=== PATIENT | male | born 1960 | race Caucasian/White ===

== ENCOUNTER 2023-04-25 00:50 | Day surgery (SDC) | payer BC, SELFPAY ==
[2023-04-14 14:08] VITALS: BMI 29.5
[2023-04-25 07:10] VITALS: BP 145/88; PULSE 72; RESP 18; TEMP 36.3; O2SAT 100; BMI 28.1
[2023-04-25] MEDS: LACTATED RINGERS 1,000 ML 150 ML IV CONT (07:28)
--- NOTE | 2023-04-25 08:03 | WPDANESEPPF ---
Anes - Initial Pre Proc Eval Procedure: Operation Date: 04/25/23 08:45 Proposed Procedures p Colonoscopy - Thai Shelley MD Date/Time: 04/25/23 08:03 Surgeon: Thai Shelley MD Pre Op Diagnosis: neoplasm screening Patient Data Age: 62 Gender: M Height: 1.68 m Weight: 79.2 kg Last Vital Signs Temp 36.3 C L 04/25/23 07:10 Pulse 72 04/25/23 07:10 Resp 18 04/25/23 07:10 BP 145/88 H 04/25/23 07:10 Pulse Ox 100 04/25/23 07:10 O2 Del Method Room Air 04/25/23 07:10 Allergies Allergy/AdvReac Type Severity Reaction Status Date / Time No Known Allergies Allergy Mild Verified 04/25/23 07:18 Home Medications Medication Instructions Recorded Confirmed Type lorazepam 0.5 mg tablet 0.5 mg PO DAILY PRN anxiety #30 03/25/22 04/25/23 Rx tabs atorvastatin 40 mg tablet 40 mg PO DAILY #90 tabs 10/17/22 04/25/23 Rx ergocalciferol (vitamin D2) 1,250 1,250 mcg PO WEEKLY #13 caps 11/29/22 04/25/23 Rx mcg (50,000 unit) capsule Patient hx anesthesia problems: none Family hx anesthesia problems: none Results Review: All pre-operative results and documents have been reviewed as part of the pre-operative evaluation. [facility] Past Medical History Medical History Anxiety Hyperlipidemia Hypertension Vitamin D deficiency Family History Family History Mother Patient's mother is Father Patient's father is Social History Social History Smoking status: Never smoker Alcohol intake: current Drinks per week: 18 Alcohol use details: BEERS Substance use: never Substance use type: does not use Lack of Transportation: No Lack of Food: Sometimes True Current Housing: I Have Housing Concerned About Future Housing: No Difficulty Paying Gas/Electric Bills: No Difficulty Paying for Meds: No Currently Unemployed: No Education: High School Diploma/GED Difficulty w/ Childcare or Family Care: No Living arrangements: with family Spiritual care concerns: No Anes - Eval Final PreProcedure Day of Procedure 04/25/23 08:03 Patient weight: overweight Heart: regular rate and rhythm Lungs: clear to auscultation Airway: Mallampati scale class II Neurological: alert and oriented Last oral intake: >/= 8 hours ASA classification: II Emergent: no Anesthetic plan: proceed Anesthesia type and monitoring: general GIVS and standard monitoring Results Review: All pre-operative results and documents have been reviewed as part of the pre-operative evaluation. Informed Consent: The patient's anesthetic plan and its attendant risks and benefits were discussed with the patient/family/POA. Questions were solicited and answers provided to the satisfaction of the patient/family/POA.
--- NOTE | 2023-04-25 08:25 | PM.HPGS ---
History of Present Illness History of Present Illness Consent: Risks, benefits, and alternatives have been discussed and questions answered. Patient agrees to proceed with procedure. Chief complaint: neoplasm screening Narrative: Alfie Lopez is a 62 year old male with last colonoscopy in 2011 Review of Systems Constitutional: Constitutional: Denies headache(s) and Denies weakness Eyes: Eyes: Denies blurry vision ENT: Reports Normal hearing present, Denies headache(s) and Denies neck pain Cardiovascular: Cardiovascular: Denies chest pain and Denies dyspnea Respiratory: Respiratory: Denies dyspnea Gastrointestinal: Gastrointestinal: Reports no additional gastrointestinal complaints Genitourinary: Genitourinary: Denies dysuria Musculoskeletal: Musculoskeletal: Denies neck pain Integumentary/Breasts: Skin/Breast: Denies dry skin Neurologic: Reports Normal hearing present, Denies headache(s) and Denies weakness Psychiatric: Psychiatric: Denies anxiety Endocrine: Endocrine: Denies change in body appearance Hematologic/Lymphatic: Hematologic/Lymphatic: Denies easy bleeding Allergic/Immunologic: Allergic/Immunologic: Denies urticaria PMFSH Past Medical History Medical History (Updated 04/25/23 @ 08:26 by Thai Shelley MD) Anxiety Colon cancer screening Hyperlipidemia Hypertension Vitamin D deficiency Family History Family History Mother Patient's mother is Father Patient's father is Social History Social History Smoking status: Never smoker Alcohol intake: current Drinks per week: 18 Alcohol use details: BEERS Substance use: never Substance use type: does not use Lack of Transportation: No Lack of Food: Sometimes True Current Housing: I Have Housing Concerned About Future Housing: No Difficulty Paying Gas/Electric Bills: No Difficulty Paying for Meds: No Currently Unemployed: No Education: High School Diploma/GED Difficulty w/ Childcare or Family Care: No Living arrangements: with family Spiritual care concerns: No Meds Home Medications and Allergies Home Medications Medication Instructions Recorded Confirmed Type lorazepam 0.5 mg tablet 0.5 mg PO DAILY PRN anxiety #30 03/25/22 04/25/23 Rx tabs atorvastatin 40 mg tablet 40 mg PO DAILY #90 tabs 10/17/22 04/25/23 Rx ergocalciferol (vitamin D2) 1,250 1,250 mcg PO WEEKLY #13 caps 11/29/22 04/25/23 Rx mcg (50,000 unit) capsule Allergies Allergy/AdvReac Type Severity Reaction Status Date / Time No Known Allergies Allergy Mild Verified 04/25/23 07:18 Vital Signs Vital Signs - 24 hr 04/25/23 07:10 Temperature 97.4 F L Pulse Rate 72 Respiratory Rate 18 Blood Pressure 145/88 H Pulse Oximetry 100 Oxygen Delivery Room Air Exam Const: General: comfortable and no acute distress HENMT: Face/Nose/Sinus: Normal nares present Eyes: General: appearance normal, both eyes and all related structures Neck: Neck: no JVD Resp: Auscultation: clear to auscultation bilaterally Cardio: Rate: regular rate Rhythm: regular rhythm GI: Inspection: non-distended GI Palp: Yes Soft to palpation Skin: General skin exam: normal color Neuro: General: gait normal Speech: normal speech Extrem: General: normal to inspection Psych: Mental Status: mental status grossly normal Assessment and Plan Assessment and plan (1) Colon cancer screening: Code(s): Z12.11 - Encounter for screening for malignant neoplasm of colon Status: Acute Assessment and Plan: colonoscopy
[2023-04-25 08:44] VITALS: BP 121/82; PULSE 74; RESP 20; O2SAT 97
[2023-04-25 08:54] VITALS: BP 115/88; PULSE 74; RESP 19; O2SAT 99
[2023-04-25 09:04] VITALS: BP 136/82; PULSE 63; RESP 20; O2SAT 99
== END 2023-04-25 09:19 | disposition home or self-care (01) ==
PROVIDERS: PCP Internal Medicine; Visit Provider Internal Medicine Gastroenterology
PROC: 0DJD8ZZ Inspection of Lower Intestinal Tract, Via Natural or Artificial Opening Endoscopic (ICD-10-PCS; CPT 45378; principal; 2023-04-25 08:45)
DX: Z12.11 Encounter for screening for malignant neoplasm of colon (principal); D12.0 Benign neoplasm of cecum; D12.3 Benign neoplasm of transverse colon; K63.5 Polyp of colon; K57.30 Diverticulosis of large intestine without perforation or abscess without bleeding; K64.8 Other hemorrhoids; E78.5 Hyperlipidemia, unspecified; E55.9 Vitamin D deficiency, unspecified; F41.9 Anxiety disorder, unspecified
CPT/HCPCS: 45385; 88305; J2704; J7120

== ENCOUNTER 2024-11-25 15:43 | Emergency (ER) | payer BC, SELFPAY ==
--- NOTE | ~2024-11-25 | XR_ITS ---
EXAM: XR finger 4th LT min 2V DATE: 11/25/2024 17:17 HISTORY: lac, r/o fx . COMPARISON: None available. FINDINGS: Comminuted fracture of the left fourth digit distal tuft, with considerable displacement o f several fracture fragments. Mild distraction and angulation of the major distal fragment. Ovoid per ipherally dense soft tissue collection with overlying soft tissue disruption and multifocal punctate debris. Mild scattered degenerative changes. No other acute osseous injury detected. IMPRESSION: Comminuted, mildly angulated and distracted left fourth distal tuft fracture, with signif icant displacement of smaller ossific fragments. Rounded peripherally hyperdense soft tissue collecti on may represent subcutaneous hematoma with clotted blood/debris. Reviewed, dictated and finalized at location K. IMPRESSION: Comminuted, mildly angulated and distracted left fourth distal tuft fracture, with significant displacement of smaller ossific fragments. Rounded peripherally hyperdense soft tissue collection may represent subcutaneous hemat aury with clotted blood/debris.
[2024-11-25 15:58] VITALS: BP 190/102; PULSE 110; RESP 18; TEMP 36.6; O2SAT 98
--- NOTE | 2024-11-25 17:10 | ED_ITS ---
HPI - Wound/Laceration General Chief Complaint: Wound/Laceration Stated Complaint: Laceration to left ring finger-electric saw Time Seen by Provider: 11/25/24 16:59 Source: patient Mode of arrival: ambulatory Limitations: no limitations History of Present Illness HPI narrative: Patient is a 64 y/o male who presents to the ED with c/o laceration to his L 4th digit. Patient reports he was using an electric circular saw when he sustained a laceration to his left 4th digit. Reports some tingling in his digit. Denies numbness. Denies any other injuries. Tetanus is unknown. Related Data Allergies Allergy/AdvReac Type Severity Reaction Status Date / Time No Known Allergies Allergy Mild Verified 11/25/24 15:44 Review of Systems Review of Systems: All systems reviewed & are unremarkable except as noted in HPI. All systems reviewed & are unremarkable except as noted in HPI and below PMFSH Past Medical History Medical History Colon cancer screening Anxiety Vitamin D deficiency Hyperlipidemia Hypertension Family History Family History Mother Patient's mother is Father Patient's father is Social History Social History Smoking status: Never smoker Alcohol intake: current Drinks per week: 18 Alcohol use details: BEERS Substance use: never Substance use type: does not use Lack of Transportation: No Lack of Food: Sometimes True Current Housing: I Have Housing Concerned About Future Housing: No Difficulty Paying Gas/Electric Bills: No Difficulty Paying for Meds: No Currently Unemployed: No Education: High School Diploma/GED Difficulty w/ Childcare or Family Care: No Living arrangements: with family Spiritual care concerns: No Exam Narrative: GENERAL: Well appearing, well-nourished, non-toxic, in no acute distress. HEAD: Normocephalic, atraumatic. RESPIRATORY: Airway patent, respirations nonlabored. CARDIOVASCULAR: Regular rate and rhythm. Radial pulses intact. MUSCULOSKELETAL: Moves all extremities. No gross deformities. Fairly intact ROM of L 4th finger. Laceration to ulnar edge of left 4th digit in DIP region, extending approx midway through finger on extensor/flexor surfaces. Mild active bleeding. No pulsatile bleeding. No nail or cuticle involvement. Capillary refill is brisk and intact. Sharp and dull sensation is intact to digit and int act distal to laceration. Wedding band in place, able to move/twist but some diffuse swelling throughout digit. SKIN: Warm, dry, normal color. NEURO: A&O X3. Speech clear. No ataxic movements. PSYCHIATRIC: Appropriate mood and affect. Normal interaction. Course Vital Signs Vital signs: Vital Signs Temperature 97.9 F 11/25/24 15:58 Pulse Rate 110 H 11/25/24 15:58 Respiratory Rate 18 11/25/24 15:58 Blood Pressure 190/102 H 11/25/24 15:58 Pulse Oximetry 98 11/25/24 15:58 Temperature 97.9 F 11/25/24 15:58 Pulse Rate 98 11/25/24 18:11 Respiratory Rate 16 11/25/24 18:11 Blood Pressure 142/93 H 11/25/24 18:11 Pulse Oximetry 96 11/25/24 18:11 Procedures Nerve Block Nerve Block 1: Nerve block date: 11/25/24 Nerve block time: 18:08 Time out performed: Yes Local Anesthetic: lidocaine 1% Amount of anesthesia used (mL): 5 Side: left Nerve Blocks: digital (4th digit) Procedure Successful: Yes Patient Tolerated Procedure: well and no complications Complications: none MDM - Wound/Laceration MDM Narrative Medical decision making narrative: Laceration to L 4th digit from circular saw. Vital signs are stable. Bleeding manageable upon my evaluation. No evidence of pulsatile or arterial bleeding. Patient neurovascularly intact. Patient reporting some tingling throughout digit but diffuse and distal sensation is intact. XR showing open fx of distal tuft/comminuted, significant displacement of fx fragments. Discussed case with Dr. Villarreal, plastic/hand surgery @ [facility], advised to suture/close skin, tetanus, abx, metal finger splint, see in 1 week in office with Keiko [place], . Given dose of Ancef in the ED. Tetanus updated in the ED. Ring was removed with ring cutter. Digital nerve block performed. Laceration repaired without complications. Patient tolerated procedure well. Bandage placed. Placed in a metal finger splint. Given imaging disc. Keflex sent to pharmacy. Patient given wound care instructions, follow-up instructions, strict return precautions. He agrees with plan. Discharged in stable condition. Patient was notably hypertensive upon arrival. This improved without intervention. Likely pain/anxiety related. Advised to monitor at home. Medical Records Attestation: I reviewed the patient's medical records. Imaging Data Attestation: I personally reviewed and interpreted this imaging study as follows: Radiologist's impression: ITS Impressions Finger X-Ray 11/25/24 17:25 IMPRESSION: Comminuted, mildly angulated and distracted left fourth distal tuft fracture, with significant displacement of smaller ossific fragments. Rounded peripherally hyperdense soft tissue collection may represent subcutaneous hematoma with clotted blood/debris. Discharge Plan Discharge Clinical Impression: Open fracture of finger of left hand, Laceration of finger of left hand Patient Disposition: Home, Self-Care Condition: Stable Instructions: Antibiotic Form, Care For Your Stitches (ED), Laceration (ED), Finger Fracture (ED) Additional Instructions: Follow up with Plastic/Hand surgery @ [facility] within the next 1 week. Call office ([phone]) tomorrow to make appointment. Take imaging disc with you to appointment. Wear metal finger splint at all times. Continue Tylenol and Ibuprofen as needed for pain. Deep Run as needed for more severe pain. Take antibiotics as prescribed starting tonight (11/25/24). Return to the ED if you experience worsening or severe pain, swelling, numbness, recurrent injury, uncontrolled bleeding, or any other symptoms of concern. Patient Language: Icelandic Prescriptions: New hydrocodone-acetaminophen 5-325 mg tablet 1 tablet PO Q6H PRN (Reason: pain) Qty: 10 0RF cephalexin 500 mg capsule 500 mg PO Q6H 7 Days Qty: 28 0RF No Action lorazepam 0.5 mg tablet 0.5 mg PO DAILY PRN (Reason: anxiety) Qty: 30 0RF atorvastatin 40 mg tablet 40 mg PO DAILY Qty: 90 1RF Patient Comments: pt currently out of med. ergocalciferol (vitamin D2) 1,250 mcg (50,000 unit) capsule 1,250 mcg PO WEEKLY Qty: 13 1RF Patient Comments: states he is out of this med. Follow-up/Referrals: Татьяна,Meng Dsouza DO [Non-Staff] - Time of Disposition: 19:19
[2024-11-25] MEDS: HYDROcodone/acetaminophen (*CRX) 5-325 MG TABLET 1 TAB PO (17:33)
[2024-11-25] MEDS: TETANUS,DIPHTHERIA,AC PERTUSSIS ADULT (0.5 ML) BOOSTRIX IM (17:34)
[2024-11-25] MEDS: ceFAZolin SODIUM 1 GM VIAL IM (17:40)
[2024-11-25] MEDS: WATER, STERILE FOR INJECTION 10 ML VIAL XX (17:47)
[2024-11-25 18:11] VITALS: BP 142/93; PULSE 98; RESP 16; O2SAT 96
[2024-11-25 19:40] VITALS: BP 114/84; PULSE 79; RESP 15; O2SAT 97
== END 2024-11-25 19:41 | disposition home or self-care (01) ==
LOC: ANHED 18:22
PROVIDERS: Emergency Provider Physician Assistant
DX: S62.635B Displaced fracture of distal phalanx of left ring finger, initial encounter for open fracture (principal); Z23 Encounter for immunization; I10 Essential (primary) hypertension; E55.9 Vitamin D deficiency, unspecified; E78.5 Hyperlipidemia, unspecified; W31.2XXA Contact with powered woodworking and forming machines, initial encounter
CPT/HCPCS: 29130; 73140; 90471; 90715; 96372; 99284; A9270; J0690; J2003

== ENCOUNTER 2024-12-09 17:16 | Outpatient (CLI) | payer BC, SELFPAY ==
--- NOTE | ~2024-12-09 | XR_ITS ---
XR finger 4th LT min 2V Ordering provider: Rhonda Solomon PA-C History: . S62.635A - Displaced fracture of distal phalanx of left r... . Comparison: November 25, 2024 FINDINGS: BONES: Comminuted fracture of the distal phalanx of the fourth finger with no change in alignment. Adolfo ny fragment tip is seen pointing anteriorly JOINT SPACES: Normal. SOFT TISSUES: Normal. IMPRESSION: Fracture distal phalanx of the fourth finger with no change from previous. Reviewed, dictated and finalized at location A.
--- OUTSIDE RECORDS SUMMARY | 2024-12-09 18:53 | XMS_ITS | Clinical Summary ---
Author Organization [facility] Address [address] [place] [address] Care Team Providers Care Information Assurance Engineer Name Role Phone Provider, No Pcp Primary Care Provider Unavailab le Source Comments [facility],non-owned Affiliates and Associated Physician Practices is amultiple site organization consisting of ambulatory clinics and hospital sitesin [place], [place], [place] and [place]. This disclosure is being madepursuant to the Care Everywhere program and may not contain all information available regarding this patient. Last updated 18.[facility] Health Encounters Date Type Department Care Team Description 11/27/2024 Travel from Last 3 Months Social History Tobacco Use Types Packs/Day Years Used Date Smoking Tobacco: Never Assessed Sex and Gender Information Value Date Recorded Sex Assigned at Not on file Gender Identity Not on file Sexual Orientation Not on file Plan of Treatment Health Maintenance Due Date Last Done Comments COLOGUARD (AGES 45-75) - COL ON CA SCREENING 1961 COLON MONITORING 1961 COLONOSCOPY - COLON CA SCREENING 1961 CT COLONOGRAPHY - COLON CA SCREENING 1961 Colorectal Cancer Screening 1961 FIT - COLON CA SCREENING 1961 FLEX SIG - COLON CA SCREENING 1961 LIPID TESTING 1961 HIV SCREENING 1976 HEPATITIS C SCREENING 10/04/1979 DTAP/TDAP/TD VACCINES (1 - Tdap) 1980 PNEUMOCOCCAL VACCINE 50+ (1 of 1 - PCV) 2011 ZOSTER VACCINE (1 of 2) 2011 COVID-19 VACCINE ( - 2023-2 5 season) 2024 INFLUENZA VACCINE (#1) 2024 DEPRESSION SCREENING 09/18/2024 Respiratory Syncytial Virus (RSV) Vaccine Pt: or over 60 yrs (1 - 1-dose 75+ series) 2036 HEPATITIS B VACCINE Aged Out No longe r eligible based on patient's age to complete this topic HIB VACCINE Aged Out No longer eligi ble based on patient's age to complete this topic HPV VACCINE Aged Out No longer eligi ble based on patient's age to complete this topic MENINGOCOCCAL (Group B) VACC INE SHARED DECISION-MAKING Aged Out No longer eligibl e based on patient's age to complete this topic MENINGOCOCCAL GROUPS A/C/Y/W VACCINE Aged Out No longer eligible b ased on patient's age to complete this topic Care Teams Information Assurance Engineer Relationship Specialty Start Date End Date Provider, No Pcp PCP - General 11/28/24
== END 2024-12-09 17:17 | disposition home or self-care (01) ==
PROVIDERS: PCP Internal Medicine; Visit Provider Physician Assistant Surgical
DX: S62.635A Displaced fracture of distal phalanx of left ring finger, initial encounter for closed fracture (principal); X58.XXXA Exposure to other specified factors, initial encounter
CPT/HCPCS: 73140

== ENCOUNTER 2024-12-23 13:12 | Outpatient (CLI) | payer BC, SELFPAY ==
--- NOTE | ~2024-12-23 | XR_ITS ---
PA, oblique, and lateral views of the left fourth finger MEDICAL HISTORY: Fracture COMPARISON: 12/09/2024 FINDINGS: Stable comminuted, predominantly transverse fracture the distal phalanx of the fourth digit . Osseous alignment is essentially unchanged. Remaining osseous structures and joint spaces are intac t. Soft tissues are unremarkable. IMPRESSION: Stable comminuted, mildly displaced fracture of the fourth distal findings. Reviewed, dictated and finalized at location .
== END 2024-12-23 13:13 | disposition home or self-care (01) ==
PROVIDERS: Visit Provider Physician Assistant Surgical
DX: S62.635D Displaced fracture of distal phalanx of left ring finger, subsequent encounter for fracture with routine healing (principal); X58.XXXD Exposure to other specified factors, subsequent encounter
CPT/HCPCS: 73140

== ENCOUNTER 2025-01-14 10:09 | Outpatient (CLI) | payer BC, SELFPAY ==
--- NOTE | ~2025-01-14 | XR_ITS ---
XR finger 4th LT min 2V Ordering provider: Rhonda Solomon PA-C History: . S62.635A - Displaced fracture of distal phalanx of left r... . Comparison: December 23, 2024 FINDINGS: BONES: Comminuted fracture in the distal phalanx of the fourth finger unchanged from previous examina tion. JOINT SPACES: Normal. SOFT TISSUES: Soft tissue swelling over the distal phalanx of the fourth finger. IMPRESSION: Comminuted fracture of the distal phalanx of the fourth finger unchanged from previous examination.. Reviewed, dictated and finalized at location A. IMPRESSION: Comminuted fracture of the distal phalanx of the fourth finger unchanged from p revious examination..
--- OUTSIDE RECORDS SUMMARY | 2025-01-14 11:20 | XMS_ITS | Clinical Summary ---
Author Organization [facility] Address [address] [place] [address] Care Team Providers Care Trading Assistant Name Role Phone Provider, No Pcp Primary Care Provider Unavailab le Source Comments [facility],non-owned Affiliates and Associated Physician Practices is amultiple site organization consisting of ambulatory clinics and hospital sitesin [place], [place], [place] and [place]. This disclosure is being madepursuant to the Care Everywhere program and may not contain all information available regarding this patient. Last updated 18.[facility] Health Encounters Date Type Department Care Team Description 11/27/2024 Travel from Last 3 Months Social History Tobacco Use Types Packs/Day Years Used Date Smoking Tobacco: Never Assessed Sex and Gender Information Value Date Recorded Sex Assigned at Not on file Legal Sex Male 6:46 AM CDT Gender Identity Not on file Sexual Orientation [...] VACCINE ( - 2023-2 5 season) 2024 DEPRESSION SCREENING 09/18/2024 INFLUENZA VACCINE (Season Ended) 2025 Respiratory Syncytial Virus (RSV) Vaccine Pt: or [...] on patient's age to complete this topic Insurance ANTH Care Teams Trading Assistant Relationship Specialty Start Date End Date Provider, No Pcp PCP - General 11/28/24
== END 2025-01-14 10:10 | disposition home or self-care (01) ==
LOC: ANHLAB 10:12
PROVIDERS: Visit Provider Physician Assistant Surgical
DX: S62.635D Displaced fracture of distal phalanx of left ring finger, subsequent encounter for fracture with routine healing (principal); X58.XXXD Exposure to other specified factors, subsequent encounter
CPT/HCPCS: 73140